=== PATIENT | female | born 1975 | race Caucasian/White ===

== ENCOUNTER → 2017-11-01 | Outpatient (CLI) | payer BC, OTHER ==
[~2017-11-01] MED LIST: Feosol PO; Motrin PO; NATALCARE RX1 TABLET PO; Percocet 5/325,Endoc PO
== END | disposition home or self-care (01) ==
LOC: NUC 10-09 08:30
DX: R14.0 Abdominal distension (gaseous) (principal); R19.7 Diarrhea, unspecified; R68.81 Early satiety; R11.0 Nausea; R12 Heartburn; K76.0 Fatty (change of) liver, not elsewhere classified
CPT/HCPCS: 78264; A9541